=== PATIENT | female | born 1970 | race Caucasian/White ===

== ENCOUNTER 2021-12-27 05:30 | Emergency (ER) | payer BC, SELFPAY ==
[2021-12-27 05:52] VITALS: BP 168/80; PULSE 118; RESP 20; TEMP 36.7; O2SAT 98; BMI 34.9
[2021-12-27] MEDS: SODIUM CHLORIDE 0.9% 1,000 ML 1000 ML IV (06:36)
[2021-12-27 06:37] LABS: COVID19 -Nasal RAPID Negative (Negative)
[2021-12-27 06:43] LABS: Add Manual Diff / Slide Review NO; Basophils Absolute Auto 0 /uL (0-100); Basophils Percent Auto 0.3 % (0-2); Eosinophils Absolute Auto 0 /uL (0-450); Eosinophils Percent Auto 0.2 % (2-4); Hemoglobin 14.8 g/dL (12.0-16.0); INR 1.2 (0.9-1.3); Lymphocytes Absolute Auto 400 /uL (1100-4500); Lymphocytes Percent Auto 3.4 % (25-40); Mean Corpuscular HGB Conc 34.4 % (30-36); Mean Corpuscular Hemoglobin 29.3 PG (26-34); Mean Corpuscular Volume 85.1 fL (80-100); Monocytes Absolute Auto 500 /uL (0-900); Monocytes Percent Auto 3.8 % (3-14); Neutrophils Absolute Auto 10900 /uL (1500-7000); Neutrophils Percent Auto 92.3 % (50-75); Platelet Count 263 X10^3/uL (150-400); Prothrombin Time 13.8 SECONDS (10.1-12.7); Red Blood Cell Count 5.05 X10^6/uL (4.0-5.2); Red Cell Distribution Width 13.3 % (11.6-14.8); White Blood Cell Count 11.8 X10^3/uL (4.5-11.0)
[2021-12-27 06:47] LABS: Alanine Aminotransferase 30 IU/L (<35); Albumin 4.8 g/dL (3.5-5.0); Albumin Globulin Ratio 1.3 (1.0-2.8); Alkaline Phosphatase 89 U/L (38-126); Aspartate Aminotransferase 30 IU/L (14-36); BUN Creatinine Ratio 31.7 (6-22); Bilirubin Total 0.8 mg/dL (0.2-1.3); Blood Urea Nitrogen 19 mg/dL (7-17); Calcium 8.7 mg/dL (8.4-10.2); Carbon Dioxide 24 mmol/L (22-32); Chloride 101 mmol/L (98-107); Estimated Glomerular Filt Rate > 60 mL/min (>60); Globulin 3.8 g/dL (1.7-4.1); Glucose 146 mg/dL (70-100); HEMOLYSIS < 15 (0-50); Lipase 94 U/L (23-300); Potassium 3.9 mmol/L (3.4-5.1); Sodium 137 mmol/L (137-145); Total Protein 8.6 g/dL (6.3-8.2)
[2021-12-27 06:57] LABS: PTT Partial Thromboplastin Tim 32 SECONDS (26-36)
--- NOTE | 2021-12-27 07:10 | ED_ITS ---
HPI - Nausea/Vomiting/Diarrhea General Chief complaint: Nausea/Vomiting/Diarrhea Stated complaint: N/V/D Time Seen by Provider: 12/27/21 06:48 Source: patient Mode of arrival: Ambulatory History of Present Illness HPI Narrative: Patient is a 51-year-old female history of hypertension and urged presenting with abdominal pain nausea vomiting and diarrhea. She says she tripped and fell at work landing on a [place] 5 days ago. She has a small bruise on her abdomen. She is not on any anti-platelet or anticoagulation medication. Only taking metoprolol and omeprazole daily. Last night she started vomiting and having multiple episodes of diarrhea. She feels chilled. She has lower abdominal cramping. She has nonbloody stool. No other injury. She says no one else is sick. No chest pain palpitations dizziness lightheadedness or other symptoms. Related Data Previous Rx's Medication Instructions Recorded ondansetron 4 mg disintegrating 4 mg PO Q8H PRN nausea and 12/27/21 tablet vomiting #10 tabs Review of Systems Review of Systems Narrative: GENERAL: Denies chills, fatigue, malaise, fever, sweats, travel HEENT: Denies sinus pain, ear pain, sore throat, difficulty swallowing, neck pain RESPIRATORY: Denies dyspnea, cough, wheezing, hemoptysis, sputum. CARDIOVASCULAR: Denies chest pain, palpitations, orthopnea, edema GASTROINTESTINAL: see HPI : Denies dysuria, frequency, incontinence, hematuria, urinary retention, flank pain. MUSCULOSKELETAL: Denies weakness, joint pain, or bony pain SKIN: No rash, no erythema, no pruritus NEUROLOGIC: Denies weakness, dizziness, headache, numbness, change in speech, confusion PSYCHIATRIC: No concerning psychosocial issues. 12 point review of systems is negative except for those stated above and HPI Patient History Social History Smoking Status: Never smoker Smoking Status: Never smoker alcohol intake frequency: 0-2 drinks per day Substance Use Type: does not use Exam Initial Vital Signs Initial Vital Signs: Vital Signs Temperature 98.0 F 12/27/21 05:52 Pulse Rate 118 H 12/27/21 05:52 Respiratory Rate 20 12/27/21 05:52 Blood Pressure 168/80 H 12/27/21 05:52 Pulse Oximetry 98 12/27/21 05:52 Oxygen Delivery Method 12/27/21 05:52 GENERAL: Alert pleasant 51-year-old and in no acute distress. HEENT: Head atraumatic,EOMI, pupils reactive, face symmetric, moist mucous membranes CARDIOVASCULAR: Regular rate and rhythm without murmurs, rubs or gallops. RESPIRATORY: Breath sounds equal bilaterally, no wheezes rales or rhonchi. ABDOMEN: Soft, nontender. Normoactive bowel sounds all 4 quadrants. No guarding or rebound. EXTREMITIES: Normal range of motion, no clubbing or edema. Neurovascularly intact NEUROLOGICAL: Alert and oriented x4.Normal gait and speech. SKIN: Warm, dry, no laceration, no petechiae, no rashes or lesions. Small subcutaneous contusion on Course Orders Ordered: ED Orders 12/27/21 06:00 COVID19 -Nasal RAPID/Pre-Proc Stat 12/27/21 06:30 Complete Blood Count AUTO DIFF Stat Comprehensive Metabolic Panel Stat Lipase Stat Partial Thromboplastin Time Stat Prothrombin Time INR Stat 12/27/21 06:35 Urine Culture Stat Urine Microscopic Stat 12/27/21 06:41 EKG-12 Lead Stat 12/27/21 07:53 CT abdomen pelvis wo con Stat Discontinued Medications Sodium Chloride (Normal Saline 0.9%) 1,000 mls @ 1,000 mls/hr IV BOLUS ONE Stop: 12/27/21 07:35 Last Infusion: 12/27/21 07:36 Dose: 0 mls/hr Documented By: Admin: 12/27/21 06:36 Dose: 1,000 mls/hr Documented By: JASWINDER Ketorolac Tromethamine (Ketorolac 30 Mg/Ml Vial) 15 mg IV NOW ONE Stop: 12/27/21 07:18 Last Admin: 12/27/21 07:32 Dose: 15 mg Documented By: ELISA Ondansetron HCl (Ondansetron 4 Mg/2 Ml Inj) 4 mg IV NOW ONE Stop: 12/27/21 07:18 Last Admin: 12/27/21 07:32 Dose: 4 mg Documented By: KF Vital Signs Vital signs: Vital Signs - 8 hr 12/27/21 05:52 12/27/21 07:31 Temperature 98.0 F Pulse Rate 118 H 106 H Respiratory Rate 20 Blood Pressure 168/80 H Pulse Oximetry 98 100 Oxygen Delivery Method Room Air MDM - Nausea/Vomiting/Diarrhea Lab Data Result diagrams: 12/27/21 06:30 12/27/21 06:30 Labs: Lab Results 12/27/21 12/27/21 12/27/21 Range/Units 06:00 06:30 06:30 WBC 11.8 H (4.5-11.0) X10^3/uL RBC 5.05 (4.0-5.2) X10^6/uL Hgb 14.8 (12.0-16.0) g/dL Hct 43.0 (36-46) % MCV 85.1 (80-100) fL MCH 29.3 (26-34) PG MCHC 34.4 (30-36) % RDW 13.3 (11.6-14.8) % Plt Count 263 (150-400) X10^3/uL Neut % (Auto) 92.3 H (50-75) % Lymph % (Auto) 3.4 L (25-40) % [place] % (Auto) 3.8 (3-14) % Eos % (Auto) 0.2 L (2-4) % Baso % (Auto) 0.3 (0-2) % Neut # (Auto) 95507 H (2287-0727) /uL Lymph # (Auto) 400 L (3318-2052) /uL Hopkins # (Auto) 500 (0-900) /uL Eos # (Auto) 0 (0-450) /uL Baso # (Auto) 0 (0-100) /uL PT 13.8 H (10.1-12.7) SECONDS INR 1.2 (0.9-1.3) APTT 32 (26-36) SECONDS Sodium (137-145) mmol/L Potassium (3.4-5.1) mmol/L Chloride (98-107) mmol/L Carbon Dioxide (22-32) mmol/L BUN (7-17) mg/dL Creatinine (0.52-1.04) mg/dL Estimated GFR (>60) mL/min BUN/Creatinine Ratio (6-22) Glucose (70-100) mg/dL Calcium (8.4-10.2) mg/dL Total Bilirubin (0.2-1.3) mg/dL AST (14-36) IU/L ALT (<35) IU/L Alkaline Phosphatase (38-126) U/L Total Protein (6.3-8.2) g/dL Albumin (3.5-5.0) g/dL Globulin (1.7-4.1) g/dL Albumin/Globulin Ratio (1.0-2.8) Lipase (23-300) U/L Urine RBC (0-5/HPF) Urine WBC (0-5/HPF) Ur Squamous Epith Cells (0-5/HPF) Urine Bacteria (None) Urine Mucus (Negative) Ur Culture Indicated? SARS-CoV-2 (PCR) Negative (Negative) 12/27/21 12/27/21 Range/Units 06:30 06:35 WBC (4.5-11.0) X10^3/uL RBC (4.0-5.2) X10^6/uL Hgb (12.0-16.0) g/dL Hct (36-46) % MCV (80-100) fL MCH (26-34) PG MCHC (30-36) % RDW (11.6-14.8) % Plt Count (150-400) X10^3/uL Neut % (Auto) (50-75) % Lymph % (Auto) (25-40) % [place] % (Auto) (3-14) % Eos % (Auto) (2-4) % Baso % (Auto) (0-2) % Neut # (Auto) (9900-8069) /uL Lymph # (Auto) (3299-8297) /uL Hopkins # (Auto) (0-900) /uL Eos # (Auto) (0-450) /uL Baso # (Auto) (0-100) /uL PT (10.1-12.7) SECONDS INR (0.9-1.3) APTT (26-36) SECONDS Sodium 137 (137-145) mmol/L Potassium 3.9 (3.4-5.1) mmol/L Chloride 101 (98-107) mmol/L Carbon Dioxide 24 (22-32) mmol/L BUN 19 H (7-17) mg/dL Creatinine 0.60 (0.52-1.04) mg/dL Estimated GFR > 60 (>60) mL/min BUN/Creatinine Ratio 31.7 H (6-22) Glucose 146 H (70-100) mg/dL Calcium 8.7 (8.4-10.2) mg/dL Total Bilirubin 0.8 (0.2-1.3) mg/dL AST 30 (14-36) IU/L ALT 30 (<35) IU/L Alkaline Phosphatase 89 (38-126) U/L Total Protein 8.6 H (6.3-8.2) g/dL Albumin 4.8 (3.5-5.0) g/dL Globulin 3.8 (1.7-4.1) g/dL Albumin/Globulin Ratio 1.3 (1.0-2.8) Lipase 94 (23-300) U/L Urine RBC 1-5/hpf (0-5/HPF) Urine WBC 5-10/hpf H (0-5/HPF) Ur Squamous Epith Cells 0-1 /hpf (0-5/HPF) Urine Bacteria Few (2-10) H (None) Urine Mucus 1+ H (Negative) Ur Culture Indicated? Specimen cultured SARS-CoV-2 (PCR) (Negative) Point of Care Testing Test Results Negative Urine Dip Bedside Urine Glucose Negative Bedside Urine Bilirubin - Negative Bedside Urine Ketone - Negative Urine Specific [place] 1.015 Bedside Urine Occult Blood - Negative Bedside Urine pH 7 Bedside Urine Protein - Negative Bedside Urine Urobilinogen - Negative Bedside Urine Nitrite - Negative Bedside Urine Leukocytes - Negative Esterase Imaging Data CT scan - abdomen/pelvis: Radiologist's Impression: CT Scan Report Signed Patient: Annabelle Marques MR#: [id number] : 1970 Acct:[id number] Age/Sex: 51 / F Date of Service: 12/27/21 Loc: ED Accession Number: [id number] ?? Procedure: CT abdomen pelvis wo con Ordering Provider: Leticia Faye D.O. PROCEDURE:? CT ABDOMEN PELVIS WO CON ? INDICATIONS:? Abdominal pain lower, n/d ? TECHNIQUE:? Noncontrast 5 mm thick sections acquired from the diaphragms to the symphysis.? 5 mm coronal and sagittal reformats were then performed.? For radiation dose reduction, the following was used:? automated exposure control, adjustment of mA and/or kV according to patient size.? ? COMPARISON:? None. ? FINDINGS:? Image quality:? Excellent.? ? ABDOMEN:? Lung bases:? Lung bases are clear.? Heart size is normal.? Small hiatal hernia. ? Solid organs:? Liver is normal in size.? There is hepatic steatosis.? Gallbladder is surgically absent.? Pancreas is normal in contours.? Spleen is normal in size.? No adrenal nodules.? Kidneys are normal in size, without hydronephrosis or nephrolithiasis.? ? ? Peritoneum and bowel:? Unenhanced bowel loops demonstrate normal wall thickness and caliber.? Appendix is normal.? No free fluid or air.? ? Nodes and vessels:? No retroperitoneal or mesenteric adenopathy by size criteria.? Aorta and inferior vena cava are normal in caliber.? ? Miscellaneous:? No ventral hernias.? ? ? PELVIS:? Genitourinary:? Bladder wall thickness is normal.? Uterus and ovaries are grossly normal. ?No free fluid in the cul-de-sac or adnexa. ? Miscellaneous:? No inguinal adenopathy.? Small fat containing inguinal hernias are noted. ? Bones:? No suspicious bony lesions.? No vertebral body compression fractures.? ? IMPRESSION:? ? 1. No acute abnormalities in abdomen or pelvis. 2. Hepatic steatosis. 3. Normal appendix. 4. Small hiatal hernia.? ? ? Dictated by: Masoud Douglas M.D. on 12/27/2021 at 8:10 ? ? Approved by: Masoud Douglas M.D. on 12/27/2021 at 8:14 ? [facility] Narrative Medical decision making narrative: Patient has some mild lower abdominal cramping. She certainly has symptoms consistent with a gastroenteritis of diarrhea and vomiting. CT is negative. Blood work is overall reassuring. She feels little bit better after Toradol and Zofran. At this time conservative an outpatient management. Discharge Plan Departure Patient Disposition: Home Clinical Impression: Gastroenteritis Instructions: DI for Viral Gastroenteritis -- Adult Activity Restrictions/Additional Instructions: *You have been diagnosed with gastroenteritis *What to do: At this time blood work and CT scan are reassuring. This is likely a virus and should pass. Stay hydrated with Gatorade or Gatorade like product. *Continue to take medications as directed Zofran 4 mg every 8 hours if needed for nausea vomiting *Follow up with your primary care provider in 2-3 days or call [phone] *Return to ER if you should have persistent vomiting diarrhea worse or any new, worsening or concerning symptoms Prescriptions: New ondansetron 4 mg tablet,disintegrating 4 mg PO Q8H PRN (Reason: nausea and vomiting) Qty: 10 0RF Visit Report Forms: Patient Portal/API
[2021-12-27 07:31] VITALS: PULSE 106; O2SAT 100
[2021-12-27] MEDS: ONDANSETRON 4 MG/2 ML INJ IV (07:32)
[2021-12-27] MEDS: KETOROLAC 30 MG/ML VIAL 15 MG IV (07:32)
--- NOTE | 2021-12-27 07:53 | DI.CT.S_ITS ---
PROCEDURE: CT ABDOMEN PELVIS WO CON INDICATIONS: Abdominal pain lower, n/d TECHNIQUE: Noncontrast 5 mm thick sections acquired from the diaphragms to the symphysis. 5 mm coronal and sagittal reformats were then performed. For radiation dose reduction, the following was used: automated exposure control, adjustment of mA and/or kV according to patient size. COMPARISON: None. FINDINGS: Image quality: Excellent. ABDOMEN: Lung bases: Lung bases are clear. Heart size is normal. Small hiatal hernia. Solid organs: Liver is normal in size. There is hepatic steatosis. Gallbladder is surgically absent. Pancreas is normal in contours. Spleen is normal in size. No adrenal nodules. Kidneys are normal in size, without hydronephrosis or nephrolithiasis. Peritoneum and bowel: Unenhanced bowel loops demonstrate normal wall thickness and caliber. Appendix is normal. No free fluid or air. Nodes and vessels: No retroperitoneal or mesenteric adenopathy by size criteria. Aorta and inferior vena cava are normal in caliber. Miscellaneous: No ventral hernias. PELVIS: Genitourinary: Bladder wall thickness is normal. Uterus and ovaries are grossly normal. No free fluid in the cul-de-sac or adnexa. Miscellaneous: No inguinal adenopathy. Small fat containing inguinal hernias are noted. Bones: No suspicious bony lesions. No vertebral body compression fractures. IMPRESSION: 1. No acute abnormalities in abdomen or pelvis. 2. Hepatic steatosis. 3. Normal appendix. 4. Small hiatal hernia. Dictated by: Masoud Douglas M.D. on 12/27/2021 at 8:10 Approved by: Masoud Douglas M.D. on 12/27/2021 at 8:14
[2021-12-27 09:15] LABS: Mucus Urine 1+ (Negative); RBC Urine 1-5/HPF (0-5/HPF); Squamous Epithelial Cell Urine 0-1 /HPF (0-5/HPF); WBC Urine 5-10/HPF (0-5/HPF)
[2021-12-27 09:16] LABS: Bacteria Urine Few (2-10); Culture Indicated Urine Specimen Cultured
== END 2021-12-27 09:02 | disposition home or self-care (01) ==
PROVIDERS: Emergency Medicine; Emergency Provider Emergency Medicine
DX: K52.9 Noninfective gastroenteritis and colitis, unspecified (principal); R10.30 Lower abdominal pain, unspecified; Z20.822 Contact with and (suspected) exposure to COVID-19
CPT/HCPCS: 36415; 74176; 80053; 81003; 81015; 81025; 83690; 85025; 85610; 85730; 87086; 87635; 93005; 93010; 96361; 96374; 96375; 99284; C9803; J1885; J2405